=== PATIENT | female | born 1995 | race Caucasian/White ===

== ENCOUNTER 2017-02-18 15:53 | Emergency (ER) | payer SELFPAY ==
--- NOTE | 2017-02-18 16:30 | NUR ---
PT CALLED FOR TRIAGE ASSESSMENT, NO ANSWER.
--- NOTE | 2017-02-18 16:45 | NUR ---
CALLED PT FOR TRIAGE ASSESSMENT, NO ANSWER X2.
--- NOTE | 2017-02-18 16:56 | NUR ---
PATIENT LEFT WITHOUT BEING SEEN BY DR. ROD. NO FURTHER CARE PROVIDED FOR PATIENT.
== END 2017-02-18 16:56 | disposition left against medical advice (07) ==
LOC: MED 15:53
DX: J02.9 Acute pharyngitis, unspecified (principal); J45.909 Unspecified asthma, uncomplicated; Z53.21 Procedure and treatment not carried out due to patient leaving prior to being seen by health care provider

== ENCOUNTER 2017-02-19 04:57 | Emergency (ER) | payer OTHER ==
[~2017-02-19] VITALS: Ht 165.1 cm; Wt 86.6 kg
[2017-02-19 05:07] VITALS: BP 131/67
--- NOTE | 2017-02-19 05:14 | NUR ---
PT TAKEN TO BED 8
--- NOTE | 2017-02-19 05:17 | NUR ---
PATIENT PRESENTS TO ED WITH COMPLAINT OF SOMETHING IN HER THROAT FOR 8 DAYS,WHICH BOTHERS HER. NO DIFF OF BREATHING; SKIN IS PINK/WARM/DRY; AAOX4 WITH EVEN AND STEADY GAIT;PATIENT STATES PAIN OF 2/10 AT THIS TIME; VSS; PATIENT POSITIONED FOR COMFORT; HOB ELEVATED; BEDRAILS UP X2; BED DOWN. ER MD MADE AWARE OF PT STATUS.
--- NOTE | 2017-02-19 05:19 | NUR ---
Dr. Lindo evaluating patient at bedside.
[2017-02-19 05:30] VITALS: BP 126/75
--- NOTE | 2017-02-19 05:30 | NUR ---
Patient discharged with v/s stable. Written and verbal after care instructions given and explained. Patient verbalized understanding. Ambulatory with steady gait. All questions addressed prior to discharge. Advised to follow up with PMD. ID BAND REMOVED.
== END 2017-02-19 05:30 | disposition home or self-care (01) ==
LOC: MED 04:57
DX: R47.02 Dysphasia (principal); R11.2 Nausea with vomiting, unspecified
CPT/HCPCS: 99283

== ENCOUNTER 2017-12-01 04:15 | Emergency (ER) | payer OTHER ==
[~2017-12-01] VITALS: Ht 165.1 cm; Wt 88.5 kg
[2017-12-01 04:19] VITALS: BP 110/60
--- NOTE | 2017-12-01 04:28 | NUR ---
PT AMBULATED TO BED 4
--- NOTE | 2017-12-01 04:30 | NUR ---
22 Y/O F W/C/O EPIGASTRIC PAIN, AND NAUSEA X THIS AM. DENIES ANY FEVER, VOMITING OR DIARRHEA. NO OTHER S/S OF DISTRESS NOTED AT THE MOMENT. ER MD MADE AWARE.
--- NOTE | 2017-12-01 04:58 | NUR ---
PT STATES UNABLE TO PROVIDE URINE AT THE MOMENT.
--- NOTE | 2017-12-01 05:08 | NUR ---
Patient being evaluated by physician at bedside.
[2017-12-01] MEDS ORDERED: FAMOTIDINE 20 MG TAB PO ONE (05:15)
[2017-12-01] MEDS ORDERED: DICYCLOMINE HCL LIQUID 20 MG, ALUMINUM HYD/MAG/SIMETHICONE 30 ML, LIDOCAINE VISCOUS 2% ... PO ONE ×3 (05:15)
[2017-12-01] MEDS ORDERED: METOCLOPRAMIDE 10 MG TAB PO ONE (05:15)
[2017-12-01 05:28] LABS: BILIRUBIN,URINE NEGATIVE (NEGATIVE); BLOOD, URINE 3+ (NEGATIVE); COLOR,URINE YELLOW (YELLOW); LEUKOCYTE ESTERASE ,URINE 1+ (NEGATIVE); NITRITE, URINE NEGATIVE (NEGATIVE); UGLUCOSE NEGATIVE (NEGATIVE)
[2017-12-01 05:32] LABS: APPEARANCE,URINE SLIGHTLY HAZY (CLEAR)
[2017-12-01 05:36] LABS: RBC,URINE 0-5 (RARE) /HPF (0-5)
[2017-12-01 05:37] LABS: WBC,URINE 6-15 (FEW) /HPF (0-5)
[2017-12-01 06:22] VITALS: BP 126/60
--- NOTE | 2017-12-01 06:22 | NUR ---
Patient discharged with v/s stable. Written and verbal after care instructions given and explained. Patient alert, oriented and verbalized understanding of instructions. Ambulatory with steady gait. All questions addressed prior to discharge. ID band removed. Patient advised to follow up with PMD. Rx of REGLAN AND PEPCID given. Patient educated on indication of medication including possible reaction and side effects. Opportunity to ask questions provided and answered.
== END 2017-12-01 06:22 | disposition home or self-care (01) ==
LOC: MED 04:15
DX: K29.00 Acute gastritis without bleeding (principal)
CPT/HCPCS: 81001; 81025; 87086; 99284; J8597

== ENCOUNTER 2018-03-25 06:10 | Emergency (ER) | payer OTHER ==
[~2018-03-25] VITALS: Ht 165.1 cm; Wt 88.5 kg
[2018-03-25 06:13] VITALS: BP 125/74
--- NOTE | 2018-03-25 06:15 | NUR ---
TO BED # 11 ambulatory, report given to Emiliano Morfin
[2018-03-25] MEDS ORDERED: NACL 0.9% 1,000 ML IV ONE (06:20)
[2018-03-25] MEDS ORDERED: KETOROLAC 30 MG/ML VIAL IVP ONE (06:20)
[2018-03-25] MEDS ORDERED: ONDANSETRON 4 MG/2 ML VIAL IVP ONE (06:20)
--- NOTE | 2018-03-25 06:20 | NUR ---
ASSUMED CARE OF PT AT THIS TIME. C/O DIFFUSE ABDOMINAL PAIN W/ NAUSEA AND DIARRHEA X 2 HOURS. PT DENIES ANY VOMITING OR URINARY COMPLAINTS. AAOX4 WITH EVEN AND STEADY GAIT; PATIENT STATES PAIN OF 5/10; VSS; PATIENT POSITIONED FOR COMFORT; HOB ELEVATED; BEDRAILS UP X2; BED DOWN. ER MD MADE AWARE OF PT STATUS. WILL CONTINUE TO MONITOR.
[2018-03-25] MEDS ORDERED: DICYCLOMINE HCL LIQUID 10 MG/5 ML UDC PO ONE (06:35)
[2018-03-25] MEDS ORDERED: PANTOPRAZOLE 40 MG INJ VIAL IVP ONE (06:35)
[2018-03-25] MEDS ORDERED: ALUMINUM HYD/MAG/SIMETHICONE 30 ML UDC PO ONE (06:35)
[2018-03-25] MEDS ORDERED: LIDOCAINE VISCOUS 2% 20 ML UDC PO ONE (06:35)
[2018-03-25 07:20] VITALS: BP 118/76
--- NOTE | 2018-03-25 07:20 | NUR ---
Patient discharged with v/s stable. Written and verbal after care instructions given and explained. Patient verbalized understanding. Ambulatory with steady gait. All questions addressed prior to discharge. Advised to follow up with PMD.
== END 2018-03-25 07:20 | disposition home or self-care (01) ==
LOC: MED 06:10
DX: K29.00 Acute gastritis without bleeding (principal); R03.0 Elevated blood-pressure reading, without diagnosis of hypertension
CPT/HCPCS: 96361; 96374; 96375; 99284; C9113; J1885; J2405; J7030

== ENCOUNTER 2019-11-29 12:49 | Emergency (ER) | payer OTHER ==
[~2019-11-29] VITALS: Ht 167.6 cm; Wt 78.0 kg
[2019-11-29 13:06] VITALS: BP 158/76
--- NOTE | 2019-11-29 13:12 | NUR ---
PT TO RESTROOM WITH STEADYY GAIT
--- NOTE | 2019-11-29 13:36 | NUR ---
24YO F C/O CHEST PAIN, DIZZINESS AND HEADACHE X 2 HOURS. PT STATES H/A OF 6/10, THROBBING. PT ALSO COMPLAINS OF ABDOMINAL PAIN OF 3/10. +NAUSEA, DENIES VOMITING. VSS. PT IS AOX4, GCS 15. PERRL 4MM. NO WEAKNESS NOTED. NORMAL RATE, REG RHYTHM. PT POSITIONED COMFORTABLY IN BED, SIDE RAILS UP. ER MD MADE AWARE. NKA PMH: PTSD, POSSIBLE CROHN'S DSE MEDS: QUETIAPINE, ASCITALOPRAM
[2019-11-29] MEDS ORDERED: ONDANSETRON 4 MG/2 ML VIAL IVP ONE (13:50)
[2019-11-29] MEDS ORDERED: NACL 0.9% 1,000 ML IV ONE (13:50)
[2019-11-29 14:27] LABS: BASOPHILS # (AUTO) 0.1 K/uL (0.00-0.22); BASOPHILS % (AUTO) 0.6 % (0.0-2.0); EOSINOPHILS # (AUTO) 0.1 K/uL (0-0.4); EOSINOPHILS % (AUTO) 1.4 % (0.0-4.0); HEMATOCRIT 37.2 % (36-48); HEMOGLOBIN 12.2 g/dL (12.0-16.0); LYMPHOCYTES % (AUTO) 18.9 % (20.5-51.1); MEAN CORPUSCULAR HEMOGLOBIN 28 pg (27-31); MEAN CORPUSCULAR HGB CONC 33 g/dL (33-37); MONOCYTES # (AUTO) 0.4 K/uL (0.8-1.0); MONOCYTES % (AUTO) 3.9 % (1.7-9.3); NEUTROPHILS # (AUTO) 7.8 K/uL (1.8-7.7); NEUTROPHILS % (AUTO) 75.2 % (42.2-75.2); PLATELET COUNT (AUTO) 368 K/uL (140-450); RED BLOOD CELL COUNT(AUTO) 4.43 MIL/uL (4.20-5.40); RED CELL DISTRIBUTION WIDTH 15.2 % (11.6-13.7); WHITE BLOOD COUNT (AUTO) 10.3 K/uL (4.8-10.8)
[2019-11-29 14:50] LABS: POTASSIUM 4.3 mmol/L (3.5-5.1)
[2019-11-29 14:51] LABS: ANION GAP 10.8 (8-16); CARBON DIOXIDE 27.5 mmol/L (21-32); CREATININE 0.8 mg/dL (0.6-1.3)
[2019-11-29 14:54] LABS: ALBUMIN 3.9 g/dL (3.4-5.0); TOTAL BILIRUBIN 0.3 mg/dL (0.0-1.0)
[2019-11-29] MEDS ORDERED: ACETAMINOPHEN EXTRA STRENGTH 500 MG TAB PO ONE (15:35)
[2019-11-29 16:26] VITALS: BP 158/76
== END 2019-11-29 16:25 | disposition home or self-care (01) ==
LOC: MED 12:49
DX: R42 Dizziness and giddiness (principal); R07.9 Chest pain, unspecified; R10.9 Unspecified abdominal pain; R11.0 Nausea; R53.1 Weakness; F43.10 Post-traumatic stress disorder, unspecified
CPT/HCPCS: 36415; 80053; 82948; 83690; 85025; 93005; 96361; 96374; 99284; J2405; J7030

== ENCOUNTER 2019-12-22 06:29 | Day surgery (SDC) | payer OTHER ==
[~2019-12-22] VITALS: Ht 165.1 cm; Wt 74.8 kg
[2019-12-22] MEDS ORDERED: fentaNYL 0.05 MG/ML VIAL ONE (07:22)
[2019-12-22] MEDS ORDERED: LIDOCAINE 2% 100 MG/5 ML UJET TP ONE (07:23)
[2019-12-22] MEDS ORDERED: MIDAZOLAM 2 MG/2 ML VIAL ONE (07:23)
[2019-12-22] MEDS ORDERED: MIDAZOLAM 2 MG/2 ML VIAL IVP ONE (07:30)
[2019-12-22] MEDS ORDERED: fentaNYL 0.05 MG/ML VIAL IVP ONE (07:32)
== END 2019-12-22 08:05 | disposition still patient (30) ==
LOC: MDS 06:29 → MMU 06:30 → MDS 08:05
PROVIDERS: ATTEND Internal Medicine Gastroenterology
DX: R19.7 Diarrhea, unspecified (principal); R11.0 Nausea; K31.89 Other diseases of stomach and duodenum; K63.89 Other specified diseases of intestine; G43.909 Migraine, unspecified, not intractable, without status migrainosus; F17.200 Nicotine dependence, unspecified, uncomplicated; Z79.899 Other long term (current) drug therapy; Z79.2 Long term (current) use of antibiotics; Z88.8 Allergy status to other drugs, medicaments and biological substances
CPT/HCPCS: 36415; 43239; 45380; 81025; 86677; 88305; J2250; J3010

== ENCOUNTER 2023-01-17 13:51 | Emergency (ER) | payer OTHER ==
--- NOTE | 2023-01-17 14:14 | NUR ---
TRIAGE NOT FINISHED, PT STATES THAT THEY WOULD RATHER WAIT NEXT WEEK FOR [facility]. PT INFORMED THAT RN CANNOT CONFIRM IF PT IUD IS GOING TO BE REMOVED AND THAT THE DOCTOR HAS TO ASSESS THEM FIRST. PT STATES UNDERSTANDING AND STATES THAT "IF IM NOT SURE WERE NOT GOING TO TAKE IT OUT, ITLL JUST MAKE MY ANXIETY WORSE AND ILL JUST GO SOMEWHERE I CAN BE SURE". PT SEEN WALKING OUT OF LOBBY AT THIS TIME
== END 2023-01-17 14:18 | disposition left against medical advice (07) ==
LOC: MED 13:51
DX: Z53.21 Procedure and treatment not carried out due to patient leaving prior to being seen by health care provider (principal)